=== PATIENT | female | born 1995 | race Caucasian/White ===

== ENCOUNTER 2016-10-27 05:37 | Inpatient (IN) | payer BC ==
[2016-10-27] VITALS (19 sets, daily range): BP systolic 100–127; BP diastolic 57–98; PULSE 67–705; TEMP 97.5–98.4
[~2016-10-27] VITALS: Ht 160 cm; Wt 77.3 kg
[2016-10-27 06:18] LABS: BASO % 0.5 % (0.0-2.0); EOS # 0.1 (0.0-0.7); EOS % 0.9 % (0-4.0); GRAN # 4.9 (1.4-6.5); GRAN % 63.4 % (42.2-75.2); LYMPH # 2.1 (1.2-3.4); LYMPH % 27.2 % (20.0-51.0); MEAN CELL VOLUME 85 fl (80.0-100.0); MEAN CORPUSCULAR HGB CONC 34 g/dl (33.0-37.0); MEAN PLATELET VOLUME 12.7 fl (7.4-10.4); MONO # 0.5 (0.1-0.6); PLATELET COUNT 147 K/mm3 (130-400); RED BLOOD COUNT 3.75 M/mm3 (4.10-5.30); REDCELL DISTRIBUTION WIDTH-CV 13.6 % (11.5-14.5); WHITE BLOOD COUNT 7.7 K/mm3 (4.8-10.8)
[2016-10-27 06:23] LABS: HEMOGLOBIN 10.9 g/dl (12.5-16.0); MEAN CORPUSCULAR HEMOGLOBIN 29 pg (27.0-31.0)
[2016-10-27] MEDS ORDERED: PRENATAL MVI PO (06:28)
[2016-10-28 07:20] VITALS: BP 111/54; PULSE 83; TEMP 97.4
[2016-10-28] MEDS ORDERED: PERCOCET 325 MG1 TA2 PO (09:22)
[2016-10-28] MEDS ORDERED: IBU600 MG PO (09:22)
[2016-10-28 11:44] LABS: HEMATOCRIT 27.1 % (37.0-47.0); HEMOGLOBIN 8.9 g/dl (12.5-16.0)
[2016-10-28 16:40] VITALS: BP 121/54; PULSE 88; TEMP 98
[2016-10-28 19:25] VITALS: BP 108/52; PULSE 83; TEMP 98.2
[2016-10-29 12:00] VITALS: BP 125/62; PULSE 97; TEMP 98.2
== END 2016-10-29 16:15 | disposition home or self-care (01) | DRG 765 ==
LOC: OB 05:37 → EDSTATUS 11-10 10:00 → LDRO 11-10 10:27
PROVIDERS: Obstetrics & Gynecology
PROC: 10D00Z1 Extraction of Products of Conception, Low, Open Approach (ICD-10-PCS; principal; 2016-10-27)
DX: O34.211 Maternal care for low transverse scar from previous cesarean delivery (principal); O99.02 Anemia complicating childbirth; D62 Acute posthemorrhagic anemia; N85.8 Other specified noninflammatory disorders of uterus; O99.824 Streptococcus B carrier state complicating childbirth; Z3A.39 39 weeks gestation of pregnancy; Z37.0 Single live birth
CPT/HCPCS: J0690; J1885; J2270; J2370; J2405; J2550; J2590; J7120